=== PATIENT | female | born 1950 | race Caucasian/White ===

== ENCOUNTER → 2016-11-12 | Outpatient (CLI) | payer MEDICARE ==
--- NOTE | ~2016-11-12 | US6 ---
[facility] A Service of [facility] RADIOLOGY TEXT RESULTS PATIENT: DERIAN ROMERO LOCATION: [facility] : 50 UNIT #: [id number] AGE: [address]: Rosy Ramirez MD SEX: F ORDER DR: [id number] [place] [id number] O MR#: [id number] Acc #: [id number] NAME: DERIAN ROMERO : 1950 SEX: F STUDY DATE/TIME: 11/12/2016 10:21 UNIT: [facility] ROOM: STUDY DESCRIPTION: US Abdominal Limited Attending Physician: Rosy Ramirez M.D. Ordering Physician: Rosy Ramirez M.D. Primary Care Physician: Rosy Ramirez M.D. MEDICAL IMAGING REPORT This report is preliminary unless electronic signature is present. EXAM Right upper quadrant ultrasound, 11/12/2016 HISTORY Abnormally elevated liver enzymes, elevated bilirubin level on 11/17/2016. FINDINGS The liver is homogeneous in echotexture and demonstrates no cystic or solid mass lesions. The intra and extrahepatic bile ducts are not dilated. The gallbladder was not visualized. It is presumed surgically absent. Correlation with patient history is suggested. The common duct measures 3.0 mm. The pancreas and right kidney are normal. IMPRESSION The gallbladder was not visualized. It is presumed surgically absent. Correlation with patient history is suggested. Dictated by... Colby France M.D. THIS IS AN ELECTRONICALLY VERIFIED REPORT Colby France M.D. at 11/12/2016 5:04 PM RADHA/karla TD: 11/12/2016 14:52 JOB #: [id number] MEDICAL IMAGING REPORT Page 1 of 1
== END | disposition home or self-care (01) ==
LOC: SGUS 09:31
DX: R17 Unspecified jaundice (principal)
CPT/HCPCS: 76705